=== PATIENT | female | born 1940 | race Caucasian/White ===

== ENCOUNTER 2023-09-08 19:57 | Inpatient (IN) | payer MEDICARE, OTHER, SELFPAY ==
[2023-09-08] VITALS (9 sets, daily range): BP systolic 116–162; BP diastolic 57–66; BMI 26.4
[2023-09-08 16:33] LABS: % Basophils 0.3 % (0-2); % Eosinophils 0.1 % (0-6); % Immature Granulocytes 1.3 % (0-0.5); % Lymphocytes 5.4 % (20.5-51.1); % Monocytes 14.9 % (1.7-9.3); Absolute Immature Granulocytes 0.2 10^3/uL (0-0.05); Absolute Lymphocytes 0.7 10^3/uL (1.2-3.4); Absolute Monocytes 1.8 10^3/uL (0.1-0.6); Absolute Neutrophils 9.4 10^3/uL (1.4-6.5); Hematocrit 34.9 % (37.0-47.0); Hemoglobin 12.4 g/dL (12.0-16.0); Mean Corp Hgb Conc. 35.5 g/dL (33.0-37.0); Mean Corpuscular Hgb 29.5 pg (27.0-31.0); Mean Corpuscular Volume 83.1 fL (81.0-99.0); Mean Platelet Volume 10.6 fL (7.4-10.4); Nucleated Red Blood Cells % 0 %; Platelet Count 193 10^3/uL (130-400); Red Cell Dist. Width 13.5 % (11.5-14.5)
[2023-09-08 16:34] LABS: Urine Albumin Trace (Neg - Trace); Urine Bilirubin Negative (Negative); Urine Character Very Cloudy (Clear); Urine Color Yellow; Urine Glucose Negative (Negative); Urine Ketone Negative (Negative); Urine Leukocyte 2+ (Negative); Urine Nitrite Positive (Negative); Urine Occult Blood 2+ (Negative); Urine Urobilinogen Negative (Neg - 1+)
[2023-09-08 16:45] LABS: Lactic Acid 1.1 mmol/L (0.7-2.0)
[2023-09-08 16:46] LABS: ALT (SGPT) 55 U/L (0-35); AST (SGOT) 36 U/L (14-36); Albumin 3.5 g/dl (3.5-5.0); Alkaline Phosphatase 166 U/L (38-126); Blood Urea Nitrogen 27 mg/dl (7-17); Calcium 8.6 mg/dl (8.4-10.2); Carbon Dioxide 28 mmol/L (22-30); Chloride 95 mmol/L (98-107); Glucose 119 mg/dl (70-99); Lipase 64 U/L (23-300); Potassium 2.9 mmol/L (3.5-5.1); Sodium 130 mmol/L (135-145); Total Bilirubin 2.1 mg/dl (0.2-1.3); Total Protein 6.1 g/dl (6.3-8.2); eGFR > 60.00
[2023-09-08 16:50] LABS: COVID-19 Antigen Negative (Negative); Urine Red Blood Cell 0-2 /HPF (0-2)
[2023-09-08 16:51] LABS: Urine Bacteria Many (Negative); Urine White Cell 40-50 /HPF (0-5)
[2023-09-08] MEDS: NSS 1000 IV ×2 (17:01→23:02)
[2023-09-08] MEDS: TYLENOL 650 MG PO (17:01)
--- NOTE | 2023-09-08 17:16 | ED.GENMED ---
History of Present Illness
General
Chief Complaint: Musculo-Skeletal Complaint
Source: patient
Exam Limitations: none
Time Seen by Provider: 09/08/23 15:24
Nursing documentation reviewed up to this point in time: agreed with
Travel History
Have you had any contact with someone who has COVID-19?: No
Do you have any symptoms of coronavirus? Fever > 100 degrees, chills, cough, shortness of breath, sore throat, loss of taste or smell, muscle aches, or headache?: No
History of Present Illness
History of Present Illness:
83 y/o F with h/o constipation, htn, hld, pacer
here with lower abd pain x 6 days
she has been using miralax and stool softeners daily for about 3 weeks and once a week using doculax to try to lose weight
she says that when her lower abd pain starte 6 days ago she was on awalk and thought she just needed to use the bathroom but she didn't end up needing to. since then she's had pretty significant lower abd pain, hasn't really been doing too much and
also developed left hip pain which she has had in the past, and was told she had mild arthritis
pt has no h/o diverticulitis
she is followed by GI here and called the GI 4 days ago to get recommendation on what to do for brenda hernandez and do thought maybe she was taking too much laxative and told her to stop
she has been using aspirin to treat pain and fever, 2-3 times a day in addition to her baby aspirin at night
pt had a fever today to 102.
she did not take any meds for the fever
she has worse pain with walking around and movement o clara left hip
no rash/redness.
she had some blood on the toilet paper with wiping
Past History
Past History
ED Past Medical History: HTN and Hypercholesterolemia
ED Past Surgical History: Cardiac
Social History
Tobacco: Non-smoker
Review of Systems
Review of Systems
Allergies reviewed?: Yes
All Other Systems: Not applicable
Phy Exam
Physical Exam
Physical Exam:
GENERAL: Alert , in no apparent distress
EYE: pupils equal and reactive
NECK: Supple
ENT: o/p clr, mmm.
CARDIAC: Regular rate and rhythm .no edema
LUNGS: Clear breath sounds bilaterally, no acute respiratory distress, no wheezes/rales/rhonchi
ABDOMEN: Soft, mild suprapubic an dllq tendenress, no r/g, no cvat, normal bowel sounds
left hip nontender
painful flexion and rotation of the hip
no skin changes
NEUROLOGICAL: Alert and oriented, no focal neuro deficits
SKIN: Warm and dry, skin intact.
MUSCULOSKELETAL: No edema, well perfused. neg bhakti's sign
PSYCH: Normal and appropriate interaction.
Course
Orders/Labs/Results
Orders:
Orders
09/08/23 Dinner
Cholesterol Lowering
At Your Request: Full Participation
Does patient need a safe tray?: No
Cholesterol Lowering: Sodium, 2 Gram
09/08/23 15:55
0.9% Sodium Chloride 1000 ml [Nss] 1,000 ml IV BOLUS
Acetaminophen [Tylenol] 650 mg PO NOW STA
09/08/23 16:21
COVID-19 Antigen Urgent
Source: Nasal Swab
Complete Blood Count/With Diff Urgent
Comprehensive Metabolic Panel Urgent
Lactic Acid Urgent
Lipase Urgent
Magnesium Urgent
Comment: ADD ON
Serum Osmolality Urgent
Comment: ADD ON
Urinalysis Reflex To Culture Urgent
Date Specimen was Collected: 09/08/23
Time Specimen was Collected: 16:02
Urine Microscopic Reflex Cult Urgent
Blood Culture Q30M
LIBERTAD Source: Blood/Venous
Specimen Description:
Blood Culture Q30M
LIBERTAD Source: Blood/Venous
Specimen Description:
Influenza A+B Rapid Molecular Urgent
LIBERTAD Source: Nasal Swab
Specimen Description:
Urine Culture Urgent
LIBERTAD Source: U
Specimen Description:
Date Specimen was Collected: 09/08/23
Time Specimen was Collected: 16:02
09/08/23 16:43
CT Abd/Pel (IV only)-DH only Urgent
Comment:
Reason For Exam: lower abd pain, left hip pian, fever
09/08/23 18:13
Ketorolac [Toradol] 15 mg IV NOW STA
09/08/23 18:44
CefTRIAXone [Rocephin] 1,000 mg IV NOW STA
Potassium Chloride [KCl] 20 meq 0.9% Sodium Chloride 150 ml [Nss] 150 ml IV NOW
09/08/23 18:57
Potassium Chloride [KCl] 40 meq PO NOW STA
09/08/23 18:58
Add On- LAB Stat
Tests Added?: Mg
09/08/23 19:02
Add On- LAB Stat
Tests Added?: serum osm
Urine Osmolality Random [Osmolality, Random Urine] Stat
Date Specimen was Collected: 09/09/23
Time Specimen was Collected: 05:42
Urine Sodium Stat
Date Specimen was Collected: 09/09/23
Time Specimen was Collected: 05:42
09/08/23 19:17
ECG [Electrocardiogram (*1)] Stat
Reason for Study: Atrial Fibrillation
09/08/23 19:38
Admit/Transfer Patient As Directed
Co-Sign Provider:
Level of Care: Inpatient admission
Assign to:: Telemetry
Physician / Group: [facility]
Diagnosis: sepsis due to pyelo
Reason for Telemetry: Arrhythmia
Date to Stop Telemetry: 09/11/23
Time to Stop Telemetry: 11:00
Reason for Hospitalization: sepsis due to pyelo
Expected length of stay greater than two midnights?: Yes
ELOS- Estimated Length of Stay in days: 4
I certify the patient meets the requirements for IP care: Yes
09/08/23 19:39
Code Status As Directed
Resuscitation Status: Full Code
09/08/23 19:43
CR Hip - LT w/wo Pel 2-3 Vw* Stat
Comment:
Reason For Exam: L hip pain
Include a pelvis x-ray?: Yes
09/08/23 22:03
0.9% Sodium Chloride 1000 ml [Nss] 1,000 ml IV 125 mls/hr
Acetaminophen [Tylenol] 650 mg PO Q4HPRN PRN
Enoxaparin Sodium [Lovenox] 40 mg SC QPM
Oxycodone [Roxicodone] 5 mg PO Q4HPRN PRN
09/08/23 22:03
Activity As Directed
Activity Level: With Assistance
Vital Signs As Directed
Frequency: Per unit guidelines
DX Deep Vein Thrombosis Video Routine
09/09/23 04:59
Complete Blood Count/No Diff IN AM
Comprehensive Metabolic Panel IN AM
09/09/23 08:00
Aspirin Low Dose EC [Aspir Low (Enteric Coated)] 81 mg PO DAILY
Cholecalciferol (Vitamin D3) [VITAMIN D3 (cholecalciferol)] 125 mcg PO Q48H
Olmesartan Medoxomil [Benicar] 40 mg PO DAILY
09/09/23 18:00
CefTRIAXone [Rocephin] 1,000 mg IV Q24H
09/11/23 11:00
DC Protocol for Telemetry ONCE
Abnormal Lab Results
09/08/23
16:21
WBC 12.0 H 10^3/uL
(4.8-10.8)
Hct 34.9 L %
(37.0-47.0)
MPV 10.6 H fL
(7.4-10.4)
Abs Immat Gran (auto) 0.2 H 10^3/uL
(0-0.05)
Absolute Neuts (auto) 9.4 H 10^3/uL
(1.4-6.5)
Absolute Lymphs (auto) 0.7 L 10^3/uL
(1.2-3.4)
Absolute Monos (auto) 1.8 H 10^3/uL
(0.1-0.6)
Immature Gran % 1.3 H %
(0-0.5)
Neutrophils % 78.0 H %
(42.2-75.2)
Lymphocytes % 5.4 L %
(20.5-51.1)
Monocytes % 14.9 H %
(1.7-9.3)
Sodium 130 L mmol/L
(135-145)
Potassium 2.9 L mmol/L
(3.5-5.1)
Chloride 95 L mmol/L
(98-107)
BUN 27 H mg/dl
(7-17)
Glucose 119 H mg/dl
(70-99)
Total Bilirubin 2.1 H mg/dl
(0.2-1.3)
ALT 55 H U/L
(0-35)
Alkaline Phosphatase 166 H U/L
(38-126)
Total Protein 6.1 L g/dl
(6.3-8.2)
Ur Occult Blood Reflex 2+ A
(Negative)
Urine Nitrite (Reflex) Positive A
(Negative)
Leukocyte Esterase Rfl 2+ A
(Negative)
Urine WBC (Reflex) 40-50 A /HPF
(0-5)
Urine Bacteria (Reflex) Many A
(Negative)
09/08/23 16:21
09/08/23 16:21
Vital Signs
Initial and Last Documented VS:
Initial Vital Signs
Temp Pulse Resp BP Pulse Ox
98.6 F 99 18 135/59 98
09/08/23 14:39 09/08/23 14:39 09/08/23 14:39 09/08/23 14:39 09/08/23 14:39
Last Documented Vital Signs
Temp Pulse Resp BP Pulse Ox
96.9 F L 83 16 139/62 92
09/10/23 11:32 09/10/23 11:32 09/10/23 11:32 09/10/23 11:32 09/10/23 11:32
MDM/Problems Addressed
Differential Diagnosis Includes:
divertic, uti, sepsis, perforation, pyelo
MDM/Problems Addressed:
83 y/o F with h/o htn, OA
here with 5-6 days lower abd pain and left hip pain as well as fever today
no urinary sypmtoms
pt has been taking a lot of laxatives to help lose weight while dealing with her chronic constipation
pt is febrile, flushed, nontoxic
minimally tender lower abdomen
no cva tenderness but a lot of pain with L hip movement, though she can fully range
w/u reveals leukocytosis, hypokalemia, urine +
ct shows pyelo L side preliminarily
dw radiologist abdi he saw obstructive uropatphy and he thought not
admit.
*Critical Care Note
Total Time (30-74mins, 75-104mins- exclusive of procedures): Not Applicable
ED Attending Note
-
Portions of this chart may have been created with voice recognition software.� Occasional wrong word or��sound alike� substitutions may have occurred due to the inherent limitations of voice recognition software.
Discharge Plan
Departure
Patient Disposition: Admit
Date of Disposition: 09/08/23
Time of Disposition: 18:44
Admit to: Med/Surg
Presentation/result/management discussed w/ accepting MD/DO: Hospitalist
Patient with high blood pressure during this ER visit?: No
Condition: Fair
Covid-19: Not Applicable
Discharge Problem:
Acute pyelonephritis
Interventions
Interventions:
*Risk Screen - Suicide Last Done: 09/08/23 22:50
*General Assessment Last Done: 09/08/23 14:38
*Neglect/Abuse Screening Last Done: 09/08/23 14:42
ED- Fall Risk Assessment Last Done: 09/08/23 14:38
*ED COVID-19 Vaccine History Last Done: 09/08/23 22:47
*Nursing Disposition Last Done: 09/08/23 22:01
ED-Musculoskeletal Assessment Last Done: 09/08/23 14:38
Discharge Date and Time
Discharge Date/Time: 09/08/23 22:02
--- NOTE | 2023-09-08 18:53 | HPS.HSE ---
Family Physician
-
Family Physician: Honey Coleman
Chief Complaint
-
lower abdominal pain
History of Present Illness
83 y/o F with PMHx:
Essential hypertension
Hyperlipidemia
p/w CC lower abd pain. This is also developed in the left hip pain with movement. Patient reports approximately 6 days ago she began noticing lower abdominal pain when she was speed walking. Since that time she has had no polyuria/oliguria,
dysuria, or cloudy urine. She had a fever today of 101 �F. Denies any fever prior. She has had 1 episode of vomiting. Denies any other symptoms including chest pain, shortness of breath, headache, neck stiffness, rash, focal neurological deficit.
Medical History
Past Medical History
Past Medical History: Reports Other (as per HPI)
Past Surgical History: Reports Other (N/A)
Social History
Tobacco: Non-smoker
Alcohol: None
Drug: None
Family History
Family History: Not pertinent
Allergies / Home Medications
Allergies reflects when Allergies were last updated in [facility].
Home Medications with original date entered in [facility]
Allergy/Medication List:
Allergies
Allergy/AdvReac Type Severity Reaction Status Date / Time
No Known Allergies Allergy Verified 07/21/21 12:16
Home Medications
aspirin 81 mg tablet,delayed release 81 mg PO DAILY 07/18/21
atorvastatin 20 mg tablet 30 mg PO HS 07/18/21
diphenhydramine HCl 25 mg capsule (ZzzQuil) 25 mg PO HSPRN PRN sleep 07/18/21
finasteride 1 mg tablet 1 mg PO DAILY 07/18/21
hydrochlorothiazide 25 mg tablet 25 mg PO DAILY 07/18/21
amlodipine 10 mg-olmesartan 40 mg tablet 1 tab PO DAILY 09/08/23
cholecalciferol (vitamin D3) 125 mcg (5,000 unit) tablet (Vitamin D3) 125 mcg PO Q48H 09/08/23
Review of Systems
-
History Source: Patient
A 12 point ROS was completed and negative except as noted: Yes
Physical Exam
Vital Signs
Vital Signs
Temp Pulse Resp BP Pulse Ox
101.6 F H 76 14 131/61 93
09/08/23 15:51 09/08/23 18:15 09/08/23 18:15 09/08/23 17:00 09/08/23 18:15
Physical Exam
General: Other (.)
Laboratory Results
-
09/08/23 16:21
09/08/23 16:21
Laboratory Results
Lactic Acid 1.1 mmol/L (0.7-2.0) 09/08/23 16:21
Total Bilirubin 2.1 mg/dl (0.2-1.3) H 09/08/23 16:21
AST 36 U/L (14-36) 09/08/23 16:21
ALT 55 U/L (0-35) H 09/08/23 16:21
Alkaline Phosphatase 166 U/L (38-126) H 09/08/23 16:21
Lipase 64 U/L (23-300) 09/08/23 16:21
Impression/Plan
-
Gen: NAD, AAOx3.
Eyes: EOMI, PERRLA, no scleral icterus.
Neck: supple.
CV: RRR with frequent premature beats, +S1/S2, no m/r/g.
Resp: CTAB, no rales, wheezes, or rhonchi.
Abd: +BS, soft, NT, ND
Skin: No rashes.
Neuro: CN 2-12 intact, non-focal.
Psych: Normal mood and affect.
CT A/P w/IV (no POA): Small left pleural effusion with trace amount of right pleural fluid. Adjacent dependent atelectasis.Diffuse patchy enhancement of the left kidney, appearance highly suggestive of pyelonephritis. No evidence for renal abscess.
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 Diffuse vascular calcification. Suggestion of significant luminal narrowing of the left common iliac artery, and
please correlate with any symptoms of claudication.
Sepsis due to acute pyelonephritis:
-Fever, leukocytosis, source pyelonephritis
-Continue Rocephin
-follow BCxs/UCx
-IVFs
-Left hip pain certainly can be due referred pain from pyelonephritis as well as the patient's previous presumed osteoarthritis. If the hip pain does not improve with treatment of pyelonephritis the patient will need further workup with MRI of the
left hip. For now we will check a left hip x-ray.
Other problems:
HLD: hold statin with elevated LFTs
Elevated LFTs: Likely related to acute infection. If LFTs worsen check Abd U/S and viral hepatitis panel, etc.
Hypokalemia: 20meq IV, 40meq PO K now. Check Mg.
Hyponatremia: Hold HCTZ. Trend Na with IVFs. Add on serum Osm to initial blood draw. Check Urine Osm/Na.
Essential HTN: Hold HCTZ. Cont Norvasc/Olmesartan with holding parameters.
FULL/Lovenox
[2023-09-08] MEDS: TORADOL 15 MG IV (19:07)
[2023-09-08] MEDS: ROCEPHIN 1000 MG IV (19:10)
[2023-09-08] MEDS: KCL 40 MEQ PO (19:19)
[2023-09-08 19:43] LABS: Osmolality Serum 277 mOsm/kg (275-300)
[2023-09-08 19:44] LABS: Magnesium 1.6 mg/dl (1.6-2.3)
[2023-09-08] MEDS: KCL 160 MEQ IV (20:41)
--- NOTE | 2023-09-08 23:00 | PTCARENOTE ---
Received patient from ED via stretcher; Telemetry order> A-Paced on monitor- strip placed in patient chart. Per external records, cardiac pacemaker/ Not MRI compatible. Patient brought in own CPAP device- House SW[employer] TENDER notified for order. Respiratory
made aware for paperwork to be signed. PMH and medications reviewed by this RN and patient. Plan of care discussed. Patient oriented to room. Call giles within reach.
[2023-09-08] MEDS: LOVENOX 40 MG SC (23:02)
[2023-09-08] MEDS: MELATONIN 5 MG PO (23:40)
--- NOTE | 2023-09-08 23:56 | PTCARENOTE ---
Received patient from ED via stretcher; Telemetry order> NSR on monitor- strip placed in patient chart. T 98.9, HR 83, RR 16, BP 162/64, pox 96% room air. PMH and medications reviewed by this RN and patient. Plan of care discussed. Patient oriented
to room. Call giles within reach.
[2023-09-09] VITALS (8 sets, daily range): BP systolic 109–142; BP diastolic 51–70; PULSE 81–83; O2SAT 95
[2023-09-09] MEDS: TYLENOL 650 MG PO ×3 (05:45→17:10)
[2023-09-09 05:51] LABS: Hematocrit 31.3 % (37.0-47.0); Mean Corp Hgb Conc. 35.1 g/dL (33.0-37.0); Mean Corpuscular Hgb 29.6 pg (27.0-31.0); Mean Corpuscular Volume 84.4 fL (81.0-99.0); Mean Platelet Volume 11.1 fL (7.4-10.4); Platelet Count 180 10^3/uL (130-400); Red Blood Cell Count 3.71 10^6/uL (4.20-5.40); Red Cell Dist. Width 13.5 % (11.5-14.5)
[2023-09-09 06:22] LABS: ALT (SGPT) 39 U/L (0-35); AST (SGOT) 26 U/L (14-36); Albumin 2.8 g/dl (3.5-5.0); Alkaline Phosphatase 123 U/L (38-126); Blood Urea Nitrogen 25 mg/dl (7-17); Calcium 8.4 mg/dl (8.4-10.2); Carbon Dioxide 24 mmol/L (22-30); Chloride 100 mmol/L (98-107); Estimated Creatinine Clearance 57 ml/min; Glucose 108 mg/dl (70-99); Potassium 3.1 mmol/L (3.5-5.1); Sodium 133 mmol/L (135-145); Total Protein 5.1 g/dl (6.3-8.2); eGFR > 60.00
[2023-09-09 06:51] LABS: Osmolality Urine 501 mOsm/kg (300-900)
[2023-09-09 07:03] LABS: Urine Sodium 18 mmol/L (30-90)
[2023-09-09] MEDS: VITAMIN D3 (cholecalciferol) 125 MCG PO (08:11)
[2023-09-09] MEDS: ASPIR LOW (ENTERIC COATED) 81 MG PO (08:11)
[2023-09-09] MEDS: NORVASC 10 MG PO (08:12)
[2023-09-09] MEDS: BENICAR 40 MG PO (08:14)
--- NOTE | 2023-09-09 08:17 | W.PN.HOSP.TC ---
Today's Communication/Plan
-
see A/P
Assessment / Plan
Assessment / Plan
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 Since that time she
has had no polyuria/oliguria, dysuria, or cloudy urine.� She had a fever today of 101 �F.� Denies any fever prior.� She has had 1 episode of vomiting.� Denies any other symptoms including chest pain, shortness of breath, headache, neck stiffness,
rash, focal neurological deficit.
CT A/P w/IV (no POA):
Small left pleural effusion with trace amount of right pleural fluid. Adjacent dependent atelectasis. Diffuse patchy enhancement of the left kidney, appearance highly suggestive of pyelonephritis. No evidence for renal abscess.
No evidence for left ureteral calculus. 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 Diffuse vascular calcification. Suggestion of significant luminal narrowing of the left common iliac artery, and
please correlate with any symptoms of claudication.
A/P:
# Sepsis POA due to acute L pyelonephritis:
CT AP report as above
follow BCxs/UCx
Continue Rocephin
Cont IVF
Left hip pain certainly can be due referred pain from pyelonephritis as well as the patient's previous presumed osteoarthritis.�If the hip pain does not improve with treatment of pyelonephritis, the patient will need further workup with MRI of the
left hip.�
left hip x-ray noted Moderate bilateral hip osteoarthritis. Stable. No evidence of acute injury.
Other problems:
# HLD
hold statin with elevated LFTs
# Elevated LFTs, improving
Likely related to acute infection.
Cont to monitor LFT
If LFTs worsen, check Abd U/S and viral hepatitis panel, etc.
# Hypokalemia
# Hypomagnesemia
replace lytes
follow levels
# Hyponatremia due to SIADH
Improved to 133, upon admission was at 130
Hold HCTZ.
Trend Na with IVFs.
# Essential HTN
Hold HCTZ.
Cont Norvasc/Olmesartan with holding parameters.
FULL code
DVT ppx: Lovenox SQ
DW RN
Anticipated Discharge: > 48 hours
Subjective/Interval History
-
Date of Service: September 09, 2023
Objective Data
-
Labs:
Laboratory Results
09/09/23
04:59
WBC 10.0
Hgb 11.0 L
Hct 31.3 L
Plt Count 180
Sodium 133 L
Potassium 3.1 L
Chloride 100
Carbon Dioxide 24
BUN 25 H
Creatinine 0.7
Glucose 108 H
Calcium 8.4
Total Bilirubin 1.0 D
AST 26
ALT 39 H
Alkaline Phosphatase 123
Vital Signs:
Vital Signs
Temp Pulse Resp BP Pulse Ox
37.1 C 87 18 129/66 96
09/09/23 03:34 09/09/23 03:34 09/09/23 03:34 09/09/23 03:34 09/09/23 03:34
I&O
09/08/23 09/09/23 09/10/23
06:59 06:59 06:59
Intake Total 1460 / 1460
Output Total 350 / 350
Balance 1110 / 1110
Review of Systems
-
Genitourinary: Reports Flank Pain (L)
Physical Exam
-
General: Well Developed, Well Nourished, No Apparent Distress, Comfortable and Conversant; Negative Respiratory Distress
HEENT: Normocephalic, Atraumatic, Nose Appears Normal and Ears Appear Normal; Negative Oxygen
Respiratory: Clear to Auscultation and Non Labored Respirations; Negative Accessory Resp Muscle Use
Cardiac: Regular Rhythm and S1/S2
GI: Soft, Nontender, Nondistended and Normal Bowel Sounds
Genito-urinary: Costovertebral Angle Tend (mild on the Left)
Skin: Warm and Dry
Neuro: Awake, Alert, Oriented and AO x 3
Psych: Calm and Intact Judgement/Insight
Data Reviewed
-
CT Scan: Report Reviewed by me
Labs: Labs Reviewed by me
[2023-09-09] MEDS: NSS IV (09:08)
[2023-09-09] MEDS: KCL 40 MEQ PO (09:09)
[2023-09-09] MEDS: KCL 20 MEQ PO (09:10)
[2023-09-09] MEDS: MAGNESIUM SULFATE 100 IV (09:11)
--- NOTE | 2023-09-09 13:26 | CM ---
Initial assessment completed with patient who lives alone in a [address] and [address] floor home with no stairs to enter. Patient has a standard walker but does not need, no O2, no services. She is independent in ADl's, drives, goes to the gym 6 days/week
and volunteers at . Sister and a friend. Fay, are support system. HC LILA is her sister. Pharmacy is [facility] in [place] and PCP is Dr. Manuela Cristobal with [facility].
[2023-09-09] MEDS: ROCEPHIN 1000 MG IV (17:11)
[2023-09-09] MEDS: STERILE WATER FOR INJECTION 10 ML IV (17:11)
[2023-09-09] MEDS: LOVENOX 40 MG SC (17:11)
[2023-09-09] MEDS: MELATONIN 5 MG PO (22:21)
[2023-09-10 04:56] VITALS: BP 117/98
[2023-09-10] MEDS: TYLENOL 650 MG PO ×2 (06:07→16:12)
[2023-09-10 06:24] LABS: Hematocrit 31.4 % (37.0-47.0); Hemoglobin 10.8 g/dL (12.0-16.0); Mean Corp Hgb Conc. 34.4 g/dL (33.0-37.0); Mean Corpuscular Hgb 29.1 pg (27.0-31.0); Mean Corpuscular Volume 84.6 fL (81.0-99.0); Mean Platelet Volume 11.5 fL (7.4-10.4); Platelet Count 228 10^3/uL (130-400); Red Blood Cell Count 3.71 10^6/uL (4.20-5.40); Red Cell Dist. Width 13.7 % (11.5-14.5); White Blood Cell Count 11.8 10^3/uL (4.8-10.8)
[2023-09-10 06:52] LABS: ALT (SGPT) 47 U/L (0-35); AST (SGOT) 36 U/L (14-36); Albumin 2.8 g/dl (3.5-5.0); Alkaline Phosphatase 159 U/L (38-126); Blood Urea Nitrogen 20 mg/dl (7-17); Calcium 8.4 mg/dl (8.4-10.2); Carbon Dioxide 25 mmol/L (22-30); Chloride 98 mmol/L (98-107); Estimated Creatinine Clearance 57 ml/min; Glucose 95 mg/dl (70-99); Magnesium 1.7 mg/dl (1.6-2.3); Potassium 4.2 mmol/L (3.5-5.1); Sodium 132 mmol/L (135-145); Total Protein 5.2 g/dl (6.3-8.2); eGFR > 60.00
[2023-09-10 07:47] VITALS: BP 132/59
[2023-09-10] MEDS: MAGNESIUM SULFATE 100 IV (08:21)
[2023-09-10] MEDS: BENICAR 40 MG PO (08:23)
[2023-09-10] MEDS: ASPIR LOW (ENTERIC COATED) 81 MG PO (08:24)
[2023-09-10] MEDS: NORVASC 10 MG PO (08:24)
--- NOTE | 2023-09-10 09:35 | W.PN.HOSP.TC ---
Today's Communication/Plan
-
see A/P
Assessment / Plan
Assessment / Plan
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 Since that time she
has had no polyuria/oliguria, dysuria, or cloudy urine.� She had a fever today of 101 �F.� Denies any fever prior.� She has had 1 episode of vomiting.� Denies any other symptoms including chest pain, shortness of breath, headache, neck stiffness,
rash, focal neurological deficit.
CT A/P w/IV (no POA):
Small left pleural effusion with trace amount of right pleural fluid. Adjacent dependent atelectasis. Diffuse patchy enhancement of the left kidney, appearance highly suggestive of pyelonephritis. No evidence for renal abscess.
No evidence for left ureteral calculus. 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 Diffuse vascular calcification. Suggestion of significant luminal narrowing of the left common iliac artery, and
please correlate with any symptoms of claudication.
A/P:
# Sepsis POA due to acute L pyelonephritis:
CT AP report as above
Urine Cx with GNR, follow S/S
blood culture one set positive, follow S/S
follow second set result and check repeat blood culture
Continue Rocephin
Observe off IVF
Left hip pain certainly can be due referred pain from pyelonephritis as well as the patient's previous presumed osteoarthritis.�If the hip pain does not improve with treatment of pyelonephritis, the patient will need further workup with MRI of the
left hip.�
left hip x-ray noted Moderate bilateral hip osteoarthritis. Stable. No evidence of acute injury.
Other problems:
# HLD
hold statin with elevated LFTs
# Elevated LFTs, improving
Likely related to acute infection.
Cont to monitor LFT
# Hypokalemia
# Hypomagnesemia
repleted lytes
follow levels
# Hyponatremia due to SIADH
Today sodium level at 132, was at 130 on admission
Hold HCTZ.
Trend Na
# Essential HTN
Hold HCTZ.
Cont Norvasc/Olmesartan with holding parameters.
FULL code
DVT ppx: Lovenox SQ
DW RN
Anticipated Discharge: 24 - 48 hours
Subjective/Interval History
-
Date of Service: September 10, 2023
Objective Data
-
Labs:
Laboratory Results
09/10/23
04:50
WBC 11.8 H
Hgb 10.8 L
Hct 31.4 L
Plt Count 228 D
Sodium 132 L
Potassium 4.2 D
Chloride 98
Carbon Dioxide 25
BUN 20 H
Creatinine 0.7
Glucose 95
Calcium 8.4
Total Bilirubin 1.0
AST 36
ALT 47 H
Alkaline Phosphatase 159 H
Vital Signs:
Vital Signs
Temp Pulse Resp BP Pulse Ox
36.9 C 81 18 132/59 90
09/10/23 07:47 09/10/23 08:24 09/10/23 07:47 09/10/23 08:24 09/10/23 07:47
I&O
09/09/23 09/10/23 09/11/23
06:59 06:59 06:59
Intake Total 1460 / 1460 2079
Output Total 350 / 350
Balance 1110 / 1110 2079
Review of Systems
-
Genitourinary: Reports Flank Pain (Left)
Physical Exam
-
General: Well Developed, Well Nourished, No Apparent Distress, Comfortable and Conversant; Negative Respiratory Distress
HEENT: Normocephalic, Atraumatic, Nose Appears Normal and Ears Appear Normal; Negative Oxygen
Respiratory: Clear to Auscultation and Non Labored Respirations; Negative Accessory Resp Muscle Use
Cardiac: Regular Rhythm and S1/S2
GI: Soft, Nontender, Nondistended and Normal Bowel Sounds
Genito-urinary: Costovertebral Angle Tend (mild on the Left)
Skin: Warm and Dry
Neuro: Awake, Alert, Oriented and AO x 3
Psych: Calm and Intact Judgement/Insight
Data Reviewed
-
CT Scan: Report Reviewed by me
Labs: Labs Reviewed by me
[2023-09-10 11:32] VITALS: BP 139/62
--- NOTE | 2023-09-10 14:48 | CM ---
IV Rocephin. Discharge Plan of Care: Home with no needs vs home PT/VN.
[2023-09-10 15:18] VITALS: BP 147/66
[2023-09-10] MEDS: LOVENOX 40 MG SC (18:17)
[2023-09-10] MEDS: ROCEPHIN 1000 MG IV (18:17)
[2023-09-10] MEDS: STERILE WATER FOR INJECTION 10 ML IV (18:18)
[2023-09-10 19:46] VITALS: BP 134/64
[2023-09-10] MEDS: MELATONIN 5 MG PO (21:58)
[2023-09-11 02:58] VITALS: BP 138/66
[2023-09-11 06:35] LABS: Hematocrit 32.9 % (37.0-47.0); Hemoglobin 11.3 g/dL (12.0-16.0); Mean Corp Hgb Conc. 34.3 g/dL (33.0-37.0); Mean Corpuscular Hgb 29.2 pg (27.0-31.0); Mean Platelet Volume 11.5 fL (7.4-10.4); Platelet Count 299 10^3/uL (130-400); Red Blood Cell Count 3.87 10^6/uL (4.20-5.40); Red Cell Dist. Width 13.6 % (11.5-14.5); White Blood Cell Count 11.3 10^3/uL (4.8-10.8)
[2023-09-11 06:37] LABS: ALT (SGPT) 60 U/L (0-35); AST (SGOT) 47 U/L (14-36); Albumin 2.8 g/dl (3.5-5.0); Alkaline Phosphatase 219 U/L (38-126); Blood Urea Nitrogen 13 mg/dl (7-17); Calcium 8.5 mg/dl (8.4-10.2); Carbon Dioxide 23 mmol/L (22-30); Chloride 100 mmol/L (98-107); Estimated Creatinine Clearance 66 ml/min; Glucose 100 mg/dl (70-99); Magnesium 1.7 mg/dl (1.6-2.3); Potassium 4.4 mmol/L (3.5-5.1); Sodium 129 mmol/L (135-145); Total Bilirubin 0.9 mg/dl (0.2-1.3); Total Protein 5.4 g/dl (6.3-8.2); eGFR > 60.00
[2023-09-11 07:14] VITALS: BP 136/73
[2023-09-11] MEDS: BENICAR 40 MG PO (08:47)
[2023-09-11] MEDS: NORVASC 10 MG PO (08:48)
[2023-09-11] MEDS: VITAMIN D3 (cholecalciferol) 125 MCG PO (08:48)
[2023-09-11] MEDS: ASPIR LOW (ENTERIC COATED) 81 MG PO (08:48)
--- NOTE | 2023-09-11 09:10 | W.PN.HOSP.TC ---
Addendum entered and electronically signed by Sarah Guo MD 09/11/23 13:52:
total DC time 35 min
Original Note:
Today's Communication/Plan
-
DC home with HH
Assessment / Plan
Assessment / Plan
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 Since that time she
has had no polyuria/oliguria, dysuria, or cloudy urine.� She had a fever today of 101 �F.� Denies any fever prior.� She has had 1 episode of vomiting.� Denies any other symptoms including chest pain, shortness of breath, headache, neck stiffness,
rash, focal neurological deficit.
CT A/P w/IV (no POA):
Small left pleural effusion with trace amount of right pleural fluid. Adjacent dependent atelectasis. Diffuse patchy enhancement of the left kidney, appearance highly suggestive of pyelonephritis. No evidence for renal abscess.
No evidence for left ureteral calculus. 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 Diffuse vascular calcification. Suggestion of significant luminal narrowing of the left common iliac artery, and
please correlate with any symptoms of claudication.
A/P:
# Sepsis POA due to acute L pyelonephritis
CT AP report as above. No kidney stone.
Urine Cx with Klebsiella, sensitivity reviewed
blood culture one set positive with Klebsiella, other set negative, so far repeat blood culture from 3/5 negative
Continue Rocephin with plan to transition to PO Keflex upon discharge (to continue for total 7 days)
Observe off IVF
'Left hip pain' likely due to referred pain from pyelonephritis. left hip x-ray noted Moderate bilateral hip osteoarthritis. Stable. No evidence of acute injury.
Other problems:
# HLD
hold statin with elevated LFTs
# Elevated LFTs, improving
Likely related to acute infection.
Cont to monitor LFT outpt
# Hypokalemia
# Hypomagnesemia
repleted lytes
follow levels
# Hyponatremia due to SIADH
Today sodium level at 129, was at 130 on admission
Hold HCTZ.
Trend Na outpt
# Essential HTN
Hold HCTZ.
Cont Norvasc/Olmesartan with holding parameters.
FULL code
DVT ppx: Lovenox SQ
DW RN
Anticipated Discharge: Today
Subjective/Interval History
-
Date of Service: September 11, 2023
Objective Data
-
Labs:
Laboratory Results
09/11/23
05:14
WBC 11.3 H
Hgb 11.3 L
Hct 32.9 L
Plt Count 299 D
Sodium 129 L
Potassium 4.4
Chloride 100
Carbon Dioxide 23
BUN 13
Creatinine 0.6
Glucose 100 H
Calcium 8.5
Total Bilirubin 0.9
AST 47 H
ALT 60 H
Alkaline Phosphatase 219 H
Vital Signs:
Vital Signs
Temp Pulse Resp BP Pulse Ox
37.3 C 89 16 136/73 94
09/11/23 07:14 09/11/23 08:48 09/11/23 07:14 09/11/23 08:48 09/11/23 07:14
I&O
09/10/23 09/11/23 09/12/23
06:59 06:59 06:59
Intake Total 2079
Balance 2079
Review of Systems
-
Genitourinary: Reports Flank Pain (Left)
Physical Exam
-
General: Well Developed, Well Nourished, No Apparent Distress, Comfortable and Conversant; Negative Respiratory Distress
HEENT: Normocephalic, Atraumatic, Nose Appears Normal and Ears Appear Normal; Negative Oxygen
Respiratory: Clear to Auscultation and Non Labored Respirations; Negative Accessory Resp Muscle Use
Cardiac: Regular Rhythm and S1/S2
GI: Soft, Nontender, Nondistended and Normal Bowel Sounds
Genito-urinary: Costovertebral Angle Tend (mild on the Left)
Skin: Warm and Dry
Neuro: Awake, Alert, Oriented and AO x 3
Psych: Calm and Intact Judgement/Insight
Data Reviewed
-
CT Scan: Report Reviewed by me
Labs: Labs Reviewed by me
[2023-09-11 12:40] VITALS: BP 139/72
--- NOTE | 2023-09-11 13:14 | W.DCSUMMARY ---
Discharge Summary
Discharge Data
Date of Admission: 09/08/23
Date of Discharge: 09/11/23
-
Pending Results: No
Hospital Course
Principal Diagnosis:
Sepsis present on admission due to acute left pyelonephritis with Klebsiella bacteremia.
Elevated liver enzymes likely due to sepsis, improving
Hypokalemia with hypomagnesemia
Chronic Diagnoses:�
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
Essential hypertension, continue Norvasc/Olmesartan but discontinue hydrochlorothiazide with hypokalemia and hypomagnesia
Hyperlipidemia
Consultations:�
None
Procedures:�
None
Clinical course:�
This is a 83-year-old female with past medical history as stated above, who presented with left flank pain.�She was also noted to have fever and had one episode of vomiting prior to admission.
Problem 1:
Sepsis present on admission due to acute left pyelonephritis with Klebsiella bacteremia.
This was associated with elevated liver enzymes which has improved during her hospital stay.
Her CT A/P noted the left kidney pyelonephritis, but was negative for renal abscess or kidney stone.
Her urine culture and one set blood culture from admission were positive for Klebsiella.
Repeat blood culture was negative.
She received Rocephin while in the hospital and was discharged with oral Keflex (to continue for another 7 days).
Problem 2:
Hypokalemia with hypomagnesemia, may be related to hydrochlorothiazide use.
Hydrochlorothiazide was discontinued during her hospital stay.
The patient's blood pressure was stable on amlodipine-olmesartan.
As for the rest of her medical problems, they were stable during her hospital stay.
Discharge Plan
-
Patient Disposition: Home with Home Care
Discharge Diagnosis/Procedures: Sepsis due to acute Left pyelonephritis and bacteremia; elevated liver enzymes likely due to infection
Condition: Fair
Diet: As tolerated
Activity: As tolerated
Driving Restrictions: As prior to admission
Blood Work: CBC and LFT in 1 week, result to PCP
Referrals:
Honey Coleman MD [Family Provider] - in less than 1 week
Additional Discharge Medication Instructions: stop HCTZ
Prescriptions:
New
cephalexin 500 mg capsule
500 mg PO BID 7 Days Qty: 14 0RF
Continued
atorvastatin 20 MG tablet
30 mg PO HS
aspirin 81 MG tablet,delayed release (DR/EC)
81 mg PO DAILY
diphenhydramine HCl [ZzzQuil] 25 MG capsule
25 mg PO HSPRN PRN (Reason: sleep)
finasteride 1 MG tablet
1 mg PO DAILY
amlodipine-olmesartan 10-40 mg tablet
1 tab PO DAILY
cholecalciferol (vitamin D3) [Vitamin D3] 125 mcg (5,000 unit) Tablet
125 mcg PO Q48H
Discontinued
hydrochlorothiazide 25 MG tablet
25 mg PO DAILY
Discharge Orders:
Discharge Patient (As Directed); Ordered 09/11/23
Ordered By: Sarah Guo
Discharge Date and Time
Discharge Date/Time: 09/11/23 12:54
--- NOTE | 2023-09-11 16:00 | CM ---
Patient has been medically cleared for discharge to home. She has declined any HH services. Patient has arranged for transportation.
== END 2023-09-11 12:54 | disposition home or self-care (01) | DRG 872 ==
LOC: 2 NORTH 19:57
PROVIDERS: Physician Assistant; ADMITTING PHYSICIAN Internal Medicine; ATTENDING PHYSICIAN Internal Medicine; EMERGENCY PHYSICIAN Emergency Medicine; FAMILY PHYSICIAN Internal Medicine
DX: A41.59 Other Gram-negative sepsis (principal); E22.2 Syndrome of inappropriate secretion of antidiuretic hormone; N10 Acute pyelonephritis; J98.11 Atelectasis; E78.00 Pure hypercholesterolemia, unspecified; E87.6 Hypokalemia; I10 Essential (primary) hypertension; E83.42 Hypomagnesemia; Z11.52 Encounter for screening for COVID-19
CPT/HCPCS: 73502; 74177; 80053; 81003; 81015; 83605; 83690; 83735; 83930; 83935; 84300; 85025; 85027; 87040; 87077; 87086; 87149; 87186; 87205; 87502; 87811; 93005; 96361; 96374; 96375; 97161; 97165; 99285; Q9967

== ENCOUNTER → 2023-10-01 06:50 | Outpatient (REF) | payer MEDICARE, OTHER, SELFPAY | LOC: RAD 06:50 | PROVIDERS: ATTENDING PHYSICIAN Internal Medicine Cardiovascular Disease; FAMILY PHYSICIAN Family Medicine | DX: I65.23 Occlusion and stenosis of bilateral carotid arteries (principal); R06.09 Other forms of dyspnea | CPT/HCPCS: 93880 ==

== ENCOUNTER 2023-12-09 06:02 | Day surgery (SDC) | payer MEDICARE, OTHER, SELFPAY ==
[2023-12-06 08:15] VITALS: BMI 27.5
[2023-12-09] VITALS (7 sets, daily range): BP systolic 105–174; BP diastolic 47–67; BMI 27.5
--- NOTE | 2023-12-09 08:42 | ITS.CL.PACE ---
Acid Extractor - Pacemaker Implant
Pacemaker Implant
Procedure Report:
PACEMAKER GENERATOR CHANGE
Date of Procedure: December 09, 2023
Primary continuous improvement lead: Dr Denise Paul
PROCEDURES:
1. Removal of dual chamber PPM generator at MAIN
2. Implant of new dual chamber PPM generator
INDICATION FOR PROCEDURE:
1. PPM generator at MAIN
2. Non-reversible symptomatic bradycardia due to sinus node dysfunction.
The patient was prepped and draped in sterile fashion. Lidocaine with epi was used for local anesthesia. An incision was made along the previous incision and the device and leads were carefully dissected from the pocket. Hemostasis was obtained
with electrocautery. The leads were from the device header and tested using an external analyzer. The pocket was liberally irrigated with antibiotic solution. Once testing (see below) showed adequate and stable function, the leads were
connected to the generator header and the leads and generator were placed within the pocket. The pocket was closed in the typical fashion.
EXPLANTED PPM GENERATOR:
Medtronic
IMPLANTED PPM GENERATOR:
Medtronic [id number], SN [id number]
RETAINED LEADS:
Existing RA lead: Medtronic [id number] (implanted November 26, 2002)
Existing RV lead: Medtronic [id number] (implanted November 26, 2002)
DEVICE TESTING:
Sensing: RA 1.3 mV, RV 3 mV
Capture: RA 1.5 V @ 0.4ms, RV 1.25 V @ 0.4ms
Ohms: RA 399, RV 342
FINAL PROGRAMMING
Sadi Pacing: MVP 60 - 130 ppm
COMPLICATIONS:
None
CONCLUSIONS:
1. Successful explant of dual chamber permanent pacemaker
2. Successful implant of dual chamber permanent pacemaker
RECOMMENDATIONS:
1. In-Office wound check in 7-10 days.
Copy to: Dr Denise Paul
== END 2023-12-09 09:55 | disposition home or self-care (01) ==
LOC: CATH 06:02
PROVIDERS: ATTENDING PHYSICIAN Internal Medicine Cardiovascular Disease; FAMILY PHYSICIAN Family Medicine; OTHER PHYSICIAN Internal Medicine Cardiovascular Disease
DX: Z45.010 Encounter for checking and testing of cardiac pacemaker pulse generator [battery] (principal); I49.5 Sick sinus syndrome; I44.2 Atrioventricular block, complete; I48.0 Paroxysmal atrial fibrillation; I10 Essential (primary) hypertension; E78.5 Hyperlipidemia, unspecified; I70.8 Atherosclerosis of other arteries; I65.29 Occlusion and stenosis of unspecified carotid artery; Z87.440 Personal history of urinary (tract) infections; Z85.820 Personal history of malignant melanoma of skin; G47.33 Obstructive sleep apnea (adult) (pediatric); Z79.82 Long term (current) use of aspirin; Z79.899 Other long term (current) drug therapy
CPT/HCPCS: 33228; C1785

== ENCOUNTER → 2024-01-31 10:27 | Outpatient (REF) | payer MEDICARE, OTHER, SELFPAY | LOC: WDC 10:27 | PROVIDERS: ATTENDING PHYSICIAN Internal Medicine | DX: Z12.31 Encounter for screening mammogram for malignant neoplasm of breast (principal) | CPT/HCPCS: 77063; 77067 ==

== ENCOUNTER → 2024-06-10 10:25 | Outpatient (REF) | payer MEDICARE, OTHER, SELFPAY ==
[2024-06-10 12:28] LABS: % Eosinophils 1.3 % (0-6); % Immature Granulocytes 0.2 % (0-0.5); % Lymphocytes 18.1 % (20.5-51.1); % Monocytes 9.8 % (1.7-9.3); % Neutrophils 69.6 % (42.2-75.2); Absolute Basophils 0.1 10^3/uL (0-0.2); Absolute Eosinophils 0.1 10^3/uL (0-0.7); Absolute Lymphocytes 0.9 10^3/uL (1.2-3.4); Absolute Monocytes 0.5 10^3/uL (0.1-0.6); Absolute Neutrophils 3.6 10^3/uL (1.4-6.5); Hematocrit 43.2 % (37.0-47.0); Hemoglobin 14.4 g/dL (12.0-16.0); Mean Corp Hgb Conc. 33.3 g/dL (33.0-37.0); Mean Corpuscular Hgb 30.4 pg (27.0-31.0); Mean Corpuscular Volume 91.1 fL (81.0-99.0); Mean Platelet Volume 11.4 fL (7.4-10.4); Nucleated Red Blood Cells % 0 %; Platelet Count 258 10^3/uL (130-400); Red Blood Cell Count 4.74 10^6/uL (4.20-5.40); Red Cell Dist. Width 13.2 % (11.5-14.5); White Blood Cell Count 5.2 10^3/uL (4.8-10.8)
[2024-06-10 12:47] LABS: ALT (SGPT) 25 U/L (0-35); AST (SGOT) 30 U/L (14-36); Albumin 4.9 g/dl (3.5-5.0); Alkaline Phosphatase 97 U/L (38-126); Blood Urea Nitrogen 28 mg/dl (7-17); Calcium 10.2 mg/dl (8.4-10.2); Carbon Dioxide 27 mmol/L (22-30); Chloride 102 mmol/L (98-107); Glucose 92 mg/dl (70-99); HDL Cholesterol 109 mg/dl; LDL Cholesterol, Calculated 56 mg/dl; Potassium 4.9 mmol/L (3.5-5.1); Sodium 141 mmol/L (135-145); Total Bilirubin 1.7 mg/dl (0.2-1.3); Total Cholesterol 180 mg/dl (50-199); Total Protein 7.6 g/dl (6.3-8.2); Triglyceride 79 mg/dl (10-149); Very Low Density Lipoprotein 15 mg/dl (0-30); eGFR > 60.00
[2024-06-10 13:14] LABS: TSH Reflex To Free T4 2.52 uIU/ml (0.47-4.68)
== END ==
LOC: OLABPV 10:25
PROVIDERS: ATTENDING PHYSICIAN Family Medicine
DX: E78.00 Pure hypercholesterolemia, unspecified (principal); R79.9 Abnormal finding of blood chemistry, unspecified; I10 Essential (primary) hypertension; R53.82 Chronic fatigue, unspecified; Z00.00 Encounter for general adult medical examination without abnormal findings; R73.01 Impaired fasting glucose; R17 Unspecified jaundice; R70.0 Elevated erythrocyte sedimentation rate; E83.52 Hypercalcemia; E55.9 Vitamin D deficiency, unspecified
CPT/HCPCS: 36415; 80053; 80061; 84443; 85025

== ENCOUNTER → 2024-06-17 11:15 | Outpatient (REF) | payer MEDICARE, OTHER, SELFPAY ==
[2024-06-17 16:55] LABS: Urine Albumin Trace (Neg - Trace); Urine Bilirubin Negative (Negative); Urine Character Clear (Clear); Urine Color Yellow; Urine Glucose Negative (Negative); Urine Ketone Negative (Negative); Urine Leukocyte Negative (Negative); Urine Nitrite Negative (Negative); Urine Occult Blood Negative (Negative); Urine Urobilinogen Negative (Neg - 1+)
== END ==
LOC: OLABPV 11:15
PROVIDERS: ATTENDING PHYSICIAN Obstetrics & Gynecology
DX: N39.0 Urinary tract infection, site not specified (principal)
CPT/HCPCS: 81003

== ENCOUNTER → 2024-08-24 07:51 | Outpatient (REF) | payer MEDICARE, OTHER, SELFPAY | LOC: RCS 07:51 | PROVIDERS: ATTENDING PHYSICIAN Internal Medicine Cardiovascular Disease; FAMILY PHYSICIAN Family Medicine | DX: I48.0 Paroxysmal atrial fibrillation (principal) | CPT/HCPCS: 93306 ==

== ENCOUNTER → 2024-09-30 11:45 | Outpatient (REF) | payer MEDICARE, OTHER, SELFPAY ==
[2024-09-30 12:31] LABS: Blood Urea Nitrogen 23 mg/dl (7-17); Calcium 9.9 mg/dl (8.4-10.2); Carbon Dioxide 31 mmol/L (22-30); Chloride 102 mmol/L (98-107); Glucose 91 mg/dl (70-99); Potassium 4.1 mmol/L (3.5-5.1); Sodium 140 mmol/L (135-145); eGFR > 60.00
== END ==
LOC: OLABPV 11:45
PROVIDERS: ATTENDING PHYSICIAN Internal Medicine Cardiovascular Disease
DX: I10 Essential (primary) hypertension (principal)
CPT/HCPCS: 36415; 80048

== ENCOUNTER → 2024-10-07 11:44 | Outpatient (REF) | payer MEDICARE, OTHER, SELFPAY ==
[2024-10-07 12:55] LABS: Blood Urea Nitrogen 25 mg/dl (7-17); Calcium 10.3 mg/dl (8.4-10.2); Carbon Dioxide 30 mmol/L (22-30); Chloride 103 mmol/L (98-107); Glucose 97 mg/dl (70-99); Potassium 4.4 mmol/L (3.5-5.1); Sodium 142 mmol/L (135-145); eGFR > 60.00
== END ==
LOC: OLABPV 11:44
PROVIDERS: ATTENDING PHYSICIAN Internal Medicine Cardiovascular Disease
DX: I10 Essential (primary) hypertension (principal)
CPT/HCPCS: 36415; 80048

== ENCOUNTER → 2024-11-17 11:10 | Outpatient (REF) | payer MEDICARE, OTHER, SELFPAY ==
[2024-11-17 11:47] LABS: % Basophils 0.8 % (0-2); % Eosinophils 1.5 % (0-6); % Immature Granulocytes 0.2 % (0-0.5); % Monocytes 10.4 % (1.7-9.3); % Neutrophils 73.1 % (42.2-75.2); Absolute Basophils 0.1 10^3/uL (0-0.2); Absolute Eosinophils 0.1 10^3/uL (0-0.7); Absolute Lymphocytes 0.9 10^3/uL (1.2-3.4); Absolute Monocytes 0.6 10^3/uL (0.1-0.6); Absolute Neutrophils 4.5 10^3/uL (1.4-6.5); Hematocrit 39.8 % (37.0-47.0); Hemoglobin 13.2 g/dL (12.0-16.0); Mean Corp Hgb Conc. 33.2 g/dL (33.0-37.0); Mean Corpuscular Hgb 29.3 pg (27.0-31.0); Mean Corpuscular Volume 88.2 fL (81.0-99.0); Mean Platelet Volume 11.2 fL (7.4-10.4); Nucleated Red Blood Cells % 0 %; Platelet Count 270 10^3/uL (130-400); Red Blood Cell Count 4.51 10^6/uL (4.20-5.40); Red Cell Dist. Width 13.5 % (11.5-14.5); White Blood Cell Count 6.2 10^3/uL (4.8-10.8)
[2024-11-17 12:25] LABS: TSH Reflex To Free T4 1.98 uIU/ml (0.47-4.68)
[2024-11-17 12:30] LABS: ALT (SGPT) 20 U/L (0-35); AST (SGOT) 25 U/L (14-36); Albumin 4.7 g/dl (3.5-5.0); Alkaline Phosphatase 97 U/L (38-126); Blood Urea Nitrogen 28 mg/dl (7-17); Calcium 9.8 mg/dl (8.4-10.2); Carbon Dioxide 27 mmol/L (22-30); Chloride 107 mmol/L (98-107); Glucose 98 mg/dl (70-99); HDL Cholesterol 83 mg/dl; LDL Cholesterol, Calculated 72 mg/dl; Potassium 4.4 mmol/L (3.5-5.1); Sodium 140 mmol/L (135-145); Total Bilirubin 1.5 mg/dl (0.2-1.3); Total Cholesterol 167 mg/dl (50-199); Triglyceride 64 mg/dl (10-149); Very Low Density Lipoprotein 12 mg/dl (0-30); eGFR > 60.00
== END ==
LOC: OLABPV 11:10
PROVIDERS: ATTENDING PHYSICIAN Family Medicine
DX: R53.83 Other fatigue (principal); I48.0 Paroxysmal atrial fibrillation; Z79.01 Long term (current) use of anticoagulants; I10 Essential (primary) hypertension; E78.00 Pure hypercholesterolemia, unspecified
CPT/HCPCS: 36415; 80053; 80061; 84443; 85025

== ENCOUNTER → 2024-12-09 10:41 | Outpatient (REF) | payer MEDICARE, OTHER, SELFPAY ==
[2024-12-09 12:14] LABS: Iron 81 ug/dl (37-170)
[2024-12-09 12:23] LABS: Ferritin 86.8 ng/ml (11.1-264.0)
[2024-12-09 12:38] LABS: Vitamin B12 357 pg/ml (239-931)
== END ==
LOC: OLABPV 10:41
PROVIDERS: ATTENDING PHYSICIAN Family Medicine
DX: R53.83 Other fatigue (principal); R79.89 Other specified abnormal findings of blood chemistry; Z79.899 Other long term (current) drug therapy
CPT/HCPCS: 36415; 82607; 82728; 83540

== ENCOUNTER → 2024-12-22 10:43 | Outpatient (REF) | payer MEDICARE, OTHER, SELFPAY ==
[2024-12-22 11:24] LABS: C-Reactive Protein < 5.00 mg/L (0.0-10.00)
[2024-12-24 08:50] LABS: ANA, IgG Reflex to HEp-2 Detected (None Detected)
[2024-12-24 17:09] LABS: SSA 52 (Ro)(ENA) Ab, IgG 3 AU/mL (0-40); SSA 60 (Ro)(ENA) Ab, IgG 1 AU/mL (0-40); SSB (La)(ENA) Ab, IgG 1 AU/mL (0-40)
[2024-12-25 09:13] LABS: ANA, HEp-2, IgG Detected (<1:80)
== END ==
LOC: OLABPV 10:43
PROVIDERS: ATTENDING PHYSICIAN Internal Medicine Rheumatology
DX: H04.123 Dry eye syndrome of bilateral lacrimal glands (principal); R76.8 Other specified abnormal immunological findings in serum; Z82.61 Family history of arthritis
CPT/HCPCS: 36415; 86038; 86140; 86235

== ENCOUNTER → 2025-02-01 07:30 | Outpatient (REF) | payer MEDICARE, OTHER, SELFPAY | LOC: RCS 07:30 | PROVIDERS: ATTENDING PHYSICIAN Internal Medicine Cardiovascular Disease; FAMILY PHYSICIAN Family Medicine | DX: R53.83 Other fatigue (principal); R06.09 Other forms of dyspnea | CPT/HCPCS: 78452; 93017; A9500; J2785 ==

== ENCOUNTER 2025-04-19 07:19 | Inpatient (IN) | payer MEDICARE, OTHER, SELFPAY ==
[2025-03-29 11:24] LABS: Hematocrit 42.3 % (37.0-47.0); Hemoglobin 14.4 g/dL (12.0-16.0); Mean Corp Hgb Conc. 34.0 g/dL (33.0-37.0); Mean Corpuscular Volume 87.8 fL (81.0-99.0); Platelet Count 254 10^3/uL (130-400); Red Cell Dist. Width 13.3 % (11.5-14.5)
[2025-03-29 12:07] LABS: ALT (SGPT) 25 U/L (0-35); AST (SGOT) 26 U/L (14-36); Albumin 4.7 g/dl (3.5-5.0); Alkaline Phosphatase 109 U/L (38-126); Blood Urea Nitrogen 26 mg/dl (7-17); Calcium 10.5 mg/dl (8.4-10.2); Carbon Dioxide 28 mmol/L (22-30); Chloride 101 mmol/L (98-107); Glucose 97 mg/dl (70-99); Potassium 4.1 mmol/L (3.5-5.1); Sodium 136 mmol/L (135-145); Total Protein 7.7 g/dl (6.3-8.2); eGFR > 60.00
[2025-03-29 12:21] LABS: Glycohemoglobin (HgbA1c) 5.2 % (4.0-5.6)
[2025-03-29 14:26] VITALS: BMI 29.5
[2025-03-29 14:39] VITALS: BMI 29.5
--- NOTE | 2025-03-30 14:06 | CM ---
CM reviewed medical records. CM left message for [facility].
--- NOTE | 2025-04-05 11:05 | CM ---
Addendum entered by Sara Bazan RN 04/06/25 11:59:
CM updated patient with PT/OT plan.
Original Note:
Demographics: confirmed
Living situation: [place] at [facility]
Support Person Post Operatively: Friend Fay to drive back and forth
History of
VN: no
SNF: no
Outpatient:
Has patient purchased required equipment: walker
PCP: Levar
Pharmacy: [facility]
Post Operative Discharge Plan: Plan for outpatient PT through [facility]. CM spoke with Radha at [facility] PT and confirmed they will see patient in home until she is ready to transition to gym.
[2025-04-19] VITALS (18 sets, daily range): BP systolic 110–169; BP diastolic 45–71; PULSE 71; BMI 29.5
[2025-04-19] MEDS: TYLENOL 650 MG PO ×5 (07:50→23:17)
[2025-04-19] MEDS: CELEBREX 200 MG PO (07:50)
[2025-04-19] MEDS: NORMOSOL-R/PLASMALYTE-A 1000 IV ×2 (08:12→17:15)
--- NOTE | 2025-04-19 11:52 | W.PN.UPDATE ---
Update Note
Progress Note Update
L knee OA s/p L TKA w/ Dr Olguin 04/19/25
DVT prophylaxis - Eliquis at modified dosing, b/l venous foot pumps
- Will resume home dosing of Eliquis on POD 3 if hemodynamically stable
HTN - + parameters - monitor BP
PAF
SSS s/p DC PPM
- Monitor on tele
- Resume Eliquis as stated above
Pulmonary nodule
ASHLEIGH, compliant w/ CPAP
- Monitor O2
- IS
- Decadron to aid in lung perfusion
- Resume CPAP HS
IBS-C - continue daily Miralax with our standard Colace/Senna bowel regimen
- Adequate hydration, early mobility as tolerated, and minimization of opioids also advised
HLD
L carotid artery stenosis, 50-69 percent by ultrasound 09/2023
Renal artery aneurysm
Questionable peripheral arterial disease with iliac arterial narrowing by CT
Scoliosis
Degenerative disc disease
Klebsiella urosepsis 2023
OAB
Melanoma in situ
Osteopenia
Insomnia
[2025-04-19] MEDS: ROXICODONE 5 MG PO (12:02)
[2025-04-19] MEDS: MIRALAX 17 GRAMS PO (13:34)
[2025-04-19] MEDS: PROSCAR 5 MG PO (13:34)
[2025-04-19] MEDS: VITAMIN D3 (cholecalciferol) 50 MCG PO (13:34)
[2025-04-19] MEDS: NORVASC 10 MG PO (14:14)
[2025-04-19] MEDS: BENICAR 40 MG PO (14:14)
--- NOTE | 2025-04-19 16:30 | PTCARENOTE ---
Pt received from the PACU via stretcher. Pt able to ambulate from stretcher to BR w/ one person assist and rolling walker. Pt is aaox3, HRR w/ murmur, Pt is currently in NSR on tankage grinder. VSS, Pt is afebrile. Dressing to left knee w/ sm.
amount of bloody drainage noted, dressing is intact. Pt instructed on plan of care. Pt verbalized understanding of instructions. Call giles is within reach.
[2025-04-19] MEDS: ANCEF 5 IV ×2 (17:25→23:17)
[2025-04-19] MEDS: LIPITOR 30 MG PO (17:26)
[2025-04-19] MEDS: COLACE 100 MG PO (20:56)
[2025-04-19] MEDS: BACTROBAN 2% OINTMENT 1 APPLIC NASAL (20:56)
[2025-04-19] MEDS: SENOKOT 17.2 MG PO (20:56)
[2025-04-19] MEDS: DECADRON 4 MG PO (20:57)
[2025-04-19] MEDS: ELIQUIS 2.5 MG PO (20:57)
[2025-04-19] MEDS: PEPCID 20 MG PO (21:47)
[2025-04-19] MEDS: NEURONTIN 300 MG PO (21:47)
[2025-04-20] MEDS: TYLENOL PO ×2 (03:13→12:00)
[2025-04-20 03:31] VITALS: BP 165/76
[2025-04-20 07:40] VITALS: BP 146/67
[2025-04-20] MEDS: ELIQUIS 2.5 MG PO (08:38)
[2025-04-20] MEDS: BACTROBAN 2% OINTMENT 1 APPLIC NASAL (08:38)
[2025-04-20] MEDS: DECADRON 4 MG PO (08:39)
[2025-04-20] MEDS: SENOKOT 17.2 MG PO (08:39)
[2025-04-20] MEDS: COLACE 100 MG PO (08:39)
[2025-04-20] MEDS: MIRALAX 17 GRAMS PO (08:39)
[2025-04-20] MEDS: BENICAR 40 MG PO (08:39)
[2025-04-20] MEDS: TYLENOL 650 MG PO (08:39)
[2025-04-20] MEDS: ROXICODONE 5 MG PO (08:40)
[2025-04-20] MEDS: NORVASC PO (08:41)
[2025-04-20] MEDS: VITAMIN D3 (cholecalciferol) 50 MCG PO (08:41)
[2025-04-20] MEDS: PROSCAR 5 MG PO (08:41)
[2025-04-20 09:43] VITALS: PULSE 66; O2SAT 96
--- NOTE | 2025-04-20 09:52 | W.PN.ORTHO ---
Today's Communication / Plan
-
Await PT and OT recs.
D/c later today if remaining clinically stable.
Assessment
.
Distal Motor Intact: Yes
Dressing:
Small areas of old incisional bleeding noted.
Assessment:
L knee OA s/p L TKA w/ Dr Olguin 04/19/25
DVT prophylaxis - Eliquis at modified dosing, b/l venous foot pumps
- Will resume home dosing of Eliquis on POD 3 since hemodynamically stable
HTN - + parameters - BPs overall stable
PAF
SSS s/p DC PPM
- Rhythm stable on tele
- Resumed Eliquis as stated above
Pulmonary nodule
ASHLEIGH, compliant w/ CPAP
- O2 stable w/ measures below
- IS
- Decadron to aid in lung perfusion
- Resumed CPAP HS
IBS-C - continue daily Miralax with our standard Colace/Senna bowel regimen
- Adequate hydration, early mobility as tolerated, and minimization of opioids also advised
HLD
L carotid artery stenosis, 50-69 percent by ultrasound 09/2023
Renal artery aneurysm
Questionable peripheral arterial disease with iliac arterial narrowing by CT
Scoliosis
Degenerative disc disease
Klebsiella urosepsis 2023
OAB
Melanoma in situ
Osteopenia
Insomnia
Plan
.
Surgery / Date: L TKA w/ Dr Olguin 04/19/25
DVT Prophylaxis: Other (Eliquis )
Activity:
Out of bed.
PT/OT
Discharge Plan: Other (Home PT/OT )
Subjective
.
.:
Patient resting comfortably in her chair.
L knee pain controlled w/ current pain meds. Minimal use of Oxycodone noted.
Denies any new significant complaints.
Eager for potential d/c today.
Vital Signs and Labs
.
Vital Signs and Labs:
Lab Results
03/29/25 10:25
03/29/25 10:25
Temp Pulse Resp BP Pulse Ox
98.3 F 66 18 146/67 96
04/20/25 07:40 04/20/25 07:40 04/20/25 07:40 04/20/25 07:40 04/20/25 07:40
Non-invasive Hgb result: 11.0
Physical Exam
-
HEENT: No pallor, cyanosis, or jaundice. Throat clear.
NECK: Supple. No JVD.
RESPIRATORY: Lungs clear to auscultation.
CVS: S1, S2 normal. RRR.�
ABDOMEN: Soft, non-tender. No distension.
EXTREMITIES: Expected post-surgical L knee edema. Strength equal b/l LEs, no calf pain with palpation/dorsiflexion. Calves soft.
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 No focal deficits. public service administrator grossly intact
--- NOTE | 2025-04-20 10:05 | W.DS.TRANS ---
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
-
Discharge Instructions:
Discharge Diagnosis/Procedures L knee OA s/p L TKA w/ Dr Olguin 04/19/25
Diet Regular
Additional Diets Adequate hydration, minimize opioids, and wear
TEDs stockings to prevent low blood pressure/
dizziness.
Activity With Walker,As tolerated
Driving Restrictions Not until seen by your Dr
Bathing Restrictions OK to Shower
Other Services PT,OT
Wound Care Dressing to be removed 1 week post-surgery.
[place] to be removed at 2 week follow-up with
surgeon's office.
Instructions:
Stand-Alone Forms: Total Hip/Knee Replacement D/C
Changes to Home Medications: Yes
Discharge Medications:
DC Medications w/original date entered in [employer]
atorvastatin 20 mg tablet 30 mg PO QPM 07/18/21
finasteride 5 mg tablet 5 mg PO DAILY 11/25/23
Mature Women's 1 cap PO Q48H 11/29/23
polyethylene glycol 3350 17 gram oral powder packet (Miralax) 17 g PO DAILY 11/29/23
minoxidil 5 % topical foam (Rogaine) 1 ea topical SUWE 12/09/23
acoltremon 0.003 % eye drops in a dropperette (Tryptyr) 1 drp ophthalmic (eye) BID dry eyes 03/26/25
apixaban 5 mg tablet (Eliquis) 5 mg PO BID 03/26/25
Held on 04/20/25. Instructions: Resume on 04/22/25.
cholecalciferol (vitamin D3) 50 mcg (2,000 unit) tablet (Vitamin D3) 50 mcg PO DAILY 03/26/25
cranberry 500 mg capsule 500 mg PO DAILY 03/26/25
estradiol 0.01% (0.1 mg/gram) vaginal cream (Estrace) 1 g vaginal SUWE 03/26/25
vibegron 75 mg tablet (Gemtesa) 75 mg PO DAILY 03/26/25
dexamethasone 4 mg tablet 4 mg PO BID inflammation #6 tabs 03/29/25
famotidine 20 mg tablet 20 mg PO HS GI prophylaxis #30 tabs 03/29/25
gabapentin 300 mg capsule 300 mg PO HS sleep/pain #10 caps 03/29/25
mupirocin 2 % topical ointment 1 applic topical BID infection prevention #1 tube 03/29/25
ondansetron 4 mg disintegrating tablet 4 mg PO Q6H PRN n/v #20 tabs 03/29/25
oxycodone 5 mg tablet 5 mg PO Q6H PRN 1 tab moderate pain, 2 tabs severe pain #30 tabs 03/29/25
acetaminophen 500 mg tablet (Acetaminophen Extra Strength) 1,000 mg (2 x 500 mg) PO Q6H #60 tabs 04/20/25
amlodipine 10 mg-olmesartan 40 mg tablet 1 tab PO DAILY #1 tab 04/20/25
apixaban 2.5 mg tablet (Eliquis) 2.5 mg PO BID #3 tabs 04/20/25
diphenhydramine HCl 25 mg capsule (ZzzQuil) 25 mg PO HSPRN PRN sleep #1 cap 04/20/25
docusate sodium 100 mg capsule 100 mg PO BID #30 caps 04/20/25
hydrochlorothiazide 25 mg tablet 25 mg PO DAILY #1 tab 04/20/25
sennosides 8.6 mg tablet (Crystal-letty) 17.2 mg (2 x 8.6 mg) PO BID #30 tabs 04/20/25
Home Medication Changes
dexamethasone 4 mg tablet 4 mg PO BID inflammation #6 tabs 03/29/25
famotidine 20 mg tablet 20 mg PO HS GI prophylaxis #30 tabs 03/29/25
gabapentin 300 mg capsule 300 mg PO HS sleep/pain #10 caps 03/29/25
mupirocin 2 % topical ointment 1 applic topical BID infection prevention #1 tube 03/29/25
ondansetron 4 mg disintegrating tablet 4 mg PO Q6H PRN n/v #20 tabs 03/29/25
oxycodone 5 mg tablet 5 mg PO Q6H PRN 1 tab moderate pain, 2 tabs severe pain #30 tabs 03/29/25
acetaminophen 500 mg tablet (Acetaminophen Extra Strength) 1,000 mg (2 x 500 mg) PO Q6H #60 tabs 04/20/25
apixaban 2.5 mg tablet (Eliquis) 2.5 mg PO BID #3 tabs 04/20/25
docusate sodium 100 mg capsule 100 mg PO BID #30 caps 04/20/25
sennosides 8.6 mg tablet (Crystal-letty) 17.2 mg (2 x 8.6 mg) PO BID #30 tabs 04/20/25
Pending Results: No
--- NOTE | 2025-04-20 10:23 | CM ---
CM reviewed medical records. IMM given. Patient will have PT/OT at [facility]
PLAN: Home with PT/OT.
[2025-04-20 11:15] VITALS: BP 138/62
== END 2025-04-20 13:50 | disposition home or self-care (01) | DRG 470 ==
LOC: 2 SOUTH 07:19
PROVIDERS: ADMITTING PHYSICIAN Specialist; FAMILY PHYSICIAN Family Medicine; REFERRING PHYSICIAN Internal Medicine Cardiovascular Disease
PROC: 0SRD0J9 Replacement of Left Knee Joint with Synthetic Substitute, Cemented, Open Approach (ICD-10-PCS; 2025-04-19)
DX: M17.12 Unilateral primary osteoarthritis, left knee (principal); M41.9 Scoliosis, unspecified; M51.369 Other intervertebral disc degeneration, lumbar region without mention of lumbar back pain or lower extremity pain; M85.80 Other specified disorders of bone density and structure, unspecified site; I10 Essential (primary) hypertension; E78.5 Hyperlipidemia, unspecified; I48.0 Paroxysmal atrial fibrillation; Z79.01 Long term (current) use of anticoagulants; Z95.0 Presence of cardiac pacemaker; I49.5 Sick sinus syndrome; I65.29 Occlusion and stenosis of unspecified carotid artery; I72.2 Aneurysm of renal artery; G47.33 Obstructive sleep apnea (adult) (pediatric); G47.00 Insomnia, unspecified; K58.1 Irritable bowel syndrome with constipation; Z96.652 Presence of left artificial knee joint; E66.9 Obesity, unspecified; Z68.29 Body mass index [BMI] 29.0-29.9, adult; Z88.8 Allergy status to other drugs, medicaments and biological substances
CPT/HCPCS: 36415; 73560; 80053; 83036; 85027; 87070; 97116; 97162; 97166; 97530; 97535; C1713; C1776

== ENCOUNTER → 2025-06-09 11:55 | Outpatient (REF) | payer MEDICARE, OTHER, SELFPAY ==
[2025-06-09 12:17] LABS: Hematocrit 39.2 % (37.0-47.0); Hemoglobin 12.5 g/dL (12.0-16.0); Mean Corp Hgb Conc. 31.9 g/dL (33.0-37.0); Mean Corpuscular Volume 91.8 fL (81.0-99.0); Nucleated Red Blood Cells % 0 %; Platelet Count 278 10^3/uL (130-400); Red Cell Dist. Width 13.8 % (11.5-14.5)
[2025-06-09 12:50] LABS: ALT (SGPT) 16 U/L (0-35); AST (SGOT) 21 U/L (14-36); Albumin 4.3 g/dl (3.5-5.0); Alkaline Phosphatase 98 U/L (38-126); Blood Urea Nitrogen 23 mg/dl (7-17); Calcium 9.9 mg/dl (8.4-10.2); Carbon Dioxide 30 mmol/L (22-30); Chloride 102 mmol/L (98-107); Glucose 94 mg/dl (70-99); HDL Cholesterol 75 mg/dl; LDL Cholesterol, Calculated 73 mg/dl; Potassium 4.4 mmol/L (3.5-5.1); Sodium 136 mmol/L (135-145); Total Protein 6.9 g/dl (6.3-8.2); Very Low Density Lipoprotein 14 mg/dl (0-30); eGFR > 60.00
== END ==
LOC: OLABPV 11:55
PROVIDERS: ATTENDING PHYSICIAN Family Medicine
DX: Z00.00 Encounter for general adult medical examination without abnormal findings (principal); Z79.899 Other long term (current) drug therapy; Z13.29 Encounter for screening for other suspected endocrine disorder
CPT/HCPCS: 36415; 80053; 80061; 84443; 85025